=== PATIENT | male | born 2005 | race Caucasian/White ===

== ENCOUNTER 2023-12-22 00:44 | Emergency (ER) | payer MEDICAID ==
[~2023-12-22] VITALS: Ht 177.8 cm; Wt 100.0 kg
[2023-12-22 00:53] VITALS: O2SAT 99
[2023-12-22] MEDS: SODIUM CHLORIDE 0.9% 1,000 ML IV ONE ×2 (03:46)
[2023-12-22] MEDS: ONDANSETRON HCL 4MG/2ML INJ IV STA (03:46)
[2023-12-22] MEDS: MORPHINE SULFATE 4 MG/ML INJ (FOR IV/IM USE) IV STA (03:46)
[2023-12-22] MEDS: TETANUS, DIPHTHERIA, PERTUSSIS VAC/PF 0.5ML (>10YR OLD) IM ONE (03:47)
[2023-12-22 03:52] LABS: BASOPHILS % 0.3 % (0.0-2.0); EOSINOPHILS % 0.1 % (0.0-5.0); HEMOGLOBIN. 16.4 g/dL (14.0-18.0); LYMPHOCYTES % 10.2 % (20.0-50.0); MEAN CORPUSCULAR HEMOGLOBIN 28.9 pg (28.0-32.0); MEAN CORPUSCULAR HGB CONC 33.5 g/dL (31.0-37.0); MEAN CORPUSCULAR VOLUME 86.1 fL (80.0-94.0); MEAN PLATELET VOLUME 9.1 fl (7.4-10.4); MONOCYTES % 4.3 % (2.0-8.0); NEUTROPHILS % 85.1 % (40.0-76.0); PLATELET 261 x1000/uL (130-400); RED BLOOD CELL COUNT 5.69 mill/uL (4.7-6.1); RED CELL DISTRIBUTION WIDTH 13.1 % (11.6-14.6); WHITE BLOOD COUNT 20.3 x1000/uL (4.5-11.0)
[2023-12-22 04:09] LABS: CARBON DIOXIDE 22 mEq/L (21-32); CHLORIDE 108 mEq/L (98-107); POTASSIUM 3.3 mEq/L (3.5-5.1); SODIUM 144 mEq/L (136-145)
[2023-12-22 04:10] LABS: CALCIUM 9.9 mg/dL (8.7-10.4)
[2023-12-22 04:14] LABS: CREATININE 1.2 mg/dL (0.6-1.3)
[2023-12-22 04:15] LABS: ETHANOL BLOOD 191 mg/dL (<10); GLUCOSE 129 mg/dL (70-105); UREA NITROGEN BLOOD 8 mg/dL (9-23)
[2023-12-22 06:10] VITALS: TEMP 98.9
[2023-12-22] MEDS: IOHEXOL-300 100 ML BOTTLE ONE (06:17)
[2023-12-22] MEDS: KETOROLAC 30MG/ML VIAL IM ONE (09:15)
[2023-12-22 11:08] VITALS: BP 121/82; PULSE 72; RESP 12
== END 2023-12-22 11:30 ==
LOC: ER 00:44
DX: F10.129 Alcohol abuse with intoxication, unspecified (principal); J45.909 Unspecified asthma, uncomplicated; R51.9 Headache, unspecified; F17.200 Nicotine dependence, unspecified, uncomplicated; F12.90 Cannabis use, unspecified, uncomplicated; Y90.6 Blood alcohol level of 120-199 mg/100 ml
CPT/HCPCS: 80048; 80320; 85025; 36415; 73552; 71045; 73120; 70450; 70486; 72125; 74177; 90715; 90471; 96361; 96372; 96374; 96375; 99285; Q9967; J1885; J2405; J2270; J7030; Z7610 ×2; G0480